=== PATIENT | male | born 1955 | race Caucasian/White ===

== ENCOUNTER 2017-09-03 09:53 | Emergency (ER) | payer SELFPAY ==
[2017-09-03 10:45] VITALS: BP 120/61
--- NOTE | 2017-09-03 11:14 | RAD ---
HISTORY: Left wrist pain, fall COMPARISONS: None VIEWS: 3, Frontal, lateral, and oblique views of the left wrist FINDINGS: BONE DENSITY: Normal. BONES: There is minimal trabecular disruption of the scaphoid bone is seen on the oblique view. JOINTS: There is no arthropathy. ALIGNMENT: There is no dislocation. SOFT TISSUES: Unremarkable. OTHER FINDINGS: None. IMPRESSION: QUESTIONABLE NONDISPLACED FRACTURE OF THE SCAPHOID.
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
== END 2017-09-03 11:45 | disposition home or self-care (01) ==
LOC: UCEAST 09:53
DX: S62.002A Unspecified fracture of navicular [scaphoid] bone of left wrist, initial encounter for closed fracture (principal); V18.4XXA Pedal cycle driver injured in noncollision transport accident in traffic accident, initial encounter; Y93.55 Activity, bike riding; Y92.9 Unspecified place or not applicable; Z87.891 Personal history of nicotine dependence
CPT/HCPCS: 99212; G0463